=== PATIENT | female | born 1980 | race African-American/Black ===

== ENCOUNTER 2016-05-21 11:59 | Emergency (ER) | payer MEDICAID ==
--- NOTE | 2016-05-21 12:09 | ER Document Report ---
ED Medical Screen (RME) - General Stated Complaint: POSSIBLE SYNCOPE Mode of Arrival: Medic Information source: Emergency Med Personnel Notes: Patient presents to the emergency department via EMS with complaints of syncope this am at school. Reports hx of seizure, takes topamax but not consistently. JOHNSON since last night. No urinary incontinence. No vomiting. I have greeted and performed a rapid initial assessment of this patient. A comprehensive ED assessment and evaluation of the patient, analysis of test results and completion of the medical decision making process will be conducted by additional ED providers. - HPI Onset: Just prior to arrival Physical Exam - Vital signs Vitals: Temp Pulse Resp BP Pulse Ox 97.9 F 74 16 118/76 97 05/21/16 12:04 05/21/16 12:04 05/21/16 12:04 05/21/16 12:04 05/21/16 12:04 Course - Vital Signs Vital signs: Temp Pulse Resp BP Pulse Ox 97.9 F 74 16 118/76 97 05/21/16 12:04 05/21/16 12:04 05/21/16 12:04 05/21/16 12:04 05/21/16 12:04
[2016-05-21 12:48] LABS: ABSOLUTE MONOCYTES (AUTO) 0.3 10^3/uL (0.1-1.4); ABSOLUTE NEUT (AUTO) 3.2 10^3/uL (1.7-8.2); BASOPHILS % (AUTO) 0.6 % (0-2); EOSINOPHILS % (AUTO) 0.5 % (0-6); HEMATOCRIT 39.1 % (36.0-47.0); HEMOGLOBIN 11.9 g/dL (12.0-15.5); HGB HCT DIFFERENCE -3.4; MEAN CORPUSCULAR HEMOGLOBIN 25.4 pg (27.0-33.4); MEAN CORPUSCULAR HGB CONC 30.5 g/dL (32.0-36.0); MEAN CORPUSCULAR VOLUME 83 fl (80-97); RED BLOOD COUNT 4.71 10^6/uL (3.72-5.28); SEGMENTED NEUTROPHILS % (AUTO) 56.9 % (42-78); WHITE BLOOD COUNT 5.6 10^3/uL (4.0-10.5)
--- NOTE | 2016-05-21 12:56 | EKG REPORT ---
SEVERITY:- BORDERLINE ECG - SINUS RHYTHM BORDERLINE T ABNORMALITIES, ANT-LAT LEADS : Confirmed by: Dia Michel MD 21-May-2016 12:54:59
[2016-05-21 13:07] LABS: ALANINE AMINOTRANSFERASE 27 U/L (9-52); ALBUMIN 4.7 g/dL (3.5-5.0); ALKALINE PHOSPHATASE 70 U/L (38-126); ANION GAP 15 (5-19); ASPARTATE AMINO TRANSFERASE 25 U/L (14-36); BILIRUBIN,TOTAL 0.6 mg/dL (0.2-1.3); BLOOD UREA NITROGEN 9 mg/dL (7-20); CALCIUM 10.4 mg/dL (8.4-10.2); CARBON DIOXIDE 26 mmol/L (22-30); CHLORIDE 102 mmol/L (98-107); CREATININE RESULT 1.01 mg/dL (0.52-1.25); GLUCOSE 85 mg/dL (75-110); POTASSIUM 4.2 mmol/L (3.6-5.0); SODIUM 142.7 mmol/L (137-145); TOTAL PROTEIN 8.5 g/dL (6.3-8.2)
[2016-05-21 13:12] LABS: APPEARANCE,URINE CLEAR; BILIRUBIN,URINE NEGATIVE (NEGATIVE); GLUCOSE, URINE NEGATIVE (NEGATIVE); KETONES,URINE NEGATIVE (NEGATIVE); LEUKOCYTE ESTERASE,URINE SMALL (NEGATIVE); NITRITE,URINE NEGATIVE (NEGATIVE); PROTEIN,URINE NEGATIVE (NEGATIVE); UROBILINOGEN,URINE NEGATIVE mg/dL (<2.0)
[2016-05-21] MEDS ORDERED: PROCHLORPERAZINE EDISYLATE INJ 10 MG/2 ML VIAL IV ONE (13:55)
[2016-05-21] MEDS ORDERED: DIPHENHYDRAMINE HCL 50 MG/ML VIAL IV ONE (13:55)
[2016-05-21] MEDS ORDERED: KETOROLAC TROMETHAMINE INJ/PF 30 MG/1 ML SDV IV ONE (13:56)
[2016-05-21] MEDS ORDERED: NORMAL SALINE 1000 ML 1,000 ML IV ONE (13:57)
--- NOTE | 2016-05-21 14:08 | ER Document Report ---
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 When she woke up someone had caught her she did not injure herself she states that she has a history of psychogenic nonepileptic seizures diagnosed in [place]. She states she is numb from the waist down and won't be able to get into the bed without help. She has a history of anemia and kidney stones. While she was in the waiting room at 1:13 this afternoon shift her significant other said that she started staring into space and her head fell forward which they described as a seizure. She takes Topamax 50 mg twice a day, Zoloft 50 mg, ibuprofen 600 mg, and Neurontin which she left at home. After history and physical exam I asked her to move both of her legs and she was able to bend her knee is slightly she then stuck her tongue out and stared, then had rhythmic bilateral extended arms, bilateral extended legs, V ups positioning very violently banging arms and legs on the mattress, breathing maintained, then sat up and started coughing with assistance of the sig other. She then tells me she remembers what her body was doing at the time and says for me to google it, it part of the "PNES" syndrome. No post ictal behavior. then started to look at her cell phone c/o that she needs IV, food, warm blanket, sleep, pain medicine ( asked for it several times) TRAVEL OUTSIDE OF THE [place] IN LAST 30 DAYS: No - Related Data Allergies/Adverse Reactions: Iodine and Iodide Containing Produc Allergy (Verified 05/21/16 12:29) Past Medical History - General Information source: Patient, Emergency Med Personnel - Social History Smoking Status: Former Smoker Chew tobacco use (# tins/day): No Frequency of alcohol use: None Drug Abuse: None Lives with: Spouse/Significant other Family History: Reviewed & Not Pertinent Patient has suicidal ideation: No Patient has homicidal ideation: No Renal/ Medical History: Denies: Hx Peritoneal Dialysis Psychiatric Medical History: Reports: Hx Post Traumatic Stress Disorder, Other - psychogenic non epileptic seizure Surgical Hx: Negative Review of Systems - Review of Systems Constitutional: No symptoms reported EENT: No symptoms reported Cardiovascular: No symptoms reported Respiratory: No symptoms reported Gastrointestinal: No symptoms reported Genitourinary: No symptoms reported Female Genitourinary: No symptoms reported Musculoskeletal: No symptoms reported Skin: No symptoms reported Hematologic/Lymphatic: No symptoms reported Neurological/Psychological: See HPI Physical Exam - Vital signs Vitals: Temp Pulse Resp BP Pulse Ox 97.9 F 74 16 118/76 97 05/21/16 12:04 05/21/16 12:04 05/21/16 12:04 05/21/16 12:04 05/21/16 12:04 Interpretation: Normal - General General appearance: Appears well, Alert In distress: None - HEENT Head: Normocephalic, Atraumatic Eyes: Normal Conjunctiva: Normal Pupils: PERRL Nerve palsy: No Pharynx: Normal Neck: Supple. No: Lymphadenopathy - Respiratory Respiratory status: No respiratory distress Chest status: Nontender Breath sounds: Normal Chest palpation: Normal - Cardiovascular Rhythm: Regular Heart sounds: Normal auscultation Murmur: No - Abdominal Inspection: Normal Distension: No distension Bowel sounds: Normal Tenderness: Nontender. No: Tender Organomegaly: No organomegaly - Back Back: Normal, Nontender. No: CVA tenderness - Extremities General upper extremity: Normal inspection, Nontender, Normal color, Normal ROM , Normal temperature General lower extremity: Normal inspection, Nontender, Normal color, Normal ROM , Normal temperature, Normal weight bearing. No: Clare's sign - Neurological Neuro grossly intact: Yes Cognition: Normal Orientation: AAOx4 [place] Coma Scale Eye Opening: Spontaneous [place] Coma Scale Verbal: Oriented Abdirashid Coma Scale Motor: Obeys Commands Abdirashid Coma Scale Total: 15 Speech: Normal Motor strength normal: LUE, RUE, LLE, RLE Sensory: Normal - Psychological Associated symptoms: Irritable, Tearful - Skin Skin Temperature: Warm Skin Moisture: Dry Skin Color: Normal Course - Re-evaluation Re-evalutation: 05/21/16 14:[address] Bryanna Woods the supervisory physician per [facility] Guidelines, he rec. CT jHead, if ok can be dispo home. Will give her local neurologist referral. She has enough medications at home. 05/21/16 16:14 DT is negative, labs are normal. Headache is 3/5. She took a nap. She is calling her significant other to come get her. - Vital Signs Vital signs: Temp Pulse Resp BP Pulse Ox 97.9 F 74 16 118/76 97 05/21/16 12:04 05/21/16 12:04 05/21/16 12:04 05/21/16 12:04 05/21/16 12:04 - Laboratory Result Diagrams: 05/21/16 12:36 05/21/16 12:36 Laboratory results interpreted by me: 05/21/16 05/21/16 05/21/16 12:36 12:36 12:48 Hgb 11.9 L MCH 25.4 L MCHC 30.5 L Calcium 10.4 H Total Protein 8.5 H Ur Leukocyte Esterase SMALL H Discharge - Discharge Clinical Impression: pseudo seizure Headache Qualifiers: Headache type: unspecified Headache chronicity pattern: episodic headache Intractability: not intractable Qualified Code(s): R51 - Headache Faint Qualifiers: Syncope type: unspecified Qualified Code(s): R55 - Syncope and collapse Condition: Good Disposition: HOME, SELF-CARE Instructions: Headache ([facility]), Fainting ([facility]), Neurologist Additional Instructions: see neurologist in [place] Return to the emergency room for any new or worsening symptoms or any concerns Forms: Return to School
[2016-05-21 19:33] VITALS: BP 134/78
== END 2016-05-21 17:35 | disposition home or self-care (01) ==
LOC: ER 11:59
DX: R51 Headache (principal); R56.9 Unspecified convulsions; R55 Syncope and collapse; W19.XXXA Unspecified fall, initial encounter; Z87.891 Personal history of nicotine dependence
CPT/HCPCS: 93005; 99284; 96361; 96374; 96375; 36415; 84703; 85025; 80053; 81001; 70450; 93010; J1200; J1885; J0780; J7030

== ENCOUNTER 2016-10-07 17:10 | Emergency (ER) | payer MEDICARE, MEDICAID ==
[2016-10-07] MEDS ORDERED: DIAZEPAM 2 MG TABLET PO ONE ×2 (18:20→20:09)
--- NOTE | 2016-10-07 18:20 | ER Document Report ---
ED Seizure - General Mode of Arrival: Wheelchair Information source: Patient - HPI Patient complains to provider of: History of seizures - 5 years Episode witnessed (by whom): Yes - son Current seizure medications: Other - Topomax Preceding symptoms/context: Other - see notes above Character of seizure: Complete loss/conscious Associated Symptoms: Other - see notes above <ABDIRIZAK COON - Last Filed: 10/07/16 20:27> <TALIA PAYTON - Last Filed: 10/07/16 21:09> - General Chief Complaint: Probable Seizure Stated Complaint: POSSIBLE SEIZURE Time Seen by Provider: 10/07/16 18:00 Notes: 36-year-old female with history of psychogenic seizures (diagnosed in 2011; medicated with Topamax) and anemia presents to the ED complaining of having a possible seizure earlier this afternoon. Patient reports that she was walking to her apartment when her legs began to feel weak and she had a syncopal episode. When she woke up there were people around her who stated that she had a possible seizure. Patient is complaining of right neck pain that was present before the seizure and was exacerbated after having the seizure. Patient reports that her last seizure was on August 06, 2016. Patient has not missed a dose of Topamax, but states that she is currently on a low-dose. (ABDIRIZAK COON) - Related Data Allergies/Adverse Reactions: Iodine and Iodide Containing Produc Allergy (Verified 10/07/16 17:20) Past Medical History - General Information source: Patient - Social History Smoking Status: Never Smoker Frequency of alcohol use: None Drug Abuse: None Family History: Reviewed & Not Pertinent Patient has suicidal ideation: No Patient has homicidal ideation: No Neurological Medical History: Reports: Hx Seizures - psychogenic non epileptic ( 2011) Renal/ Medical History: Denies: Hx Peritoneal Dialysis Psychiatric Medical History: Reports: Hx Post Traumatic Stress Disorder - Immunizations Hx Diphtheria, Pertussis, Tetanus Vaccination: Yes <ABDIRIZAK COON - Last Filed: 10/07/16 20:27> Physical Exam - General General appearance: Alert In distress: None - HEENT Head: Normocephalic, Atraumatic Eyes: Normal Pupils: PERRL Neck: Other - Right trapezius tenderness to palpation. No: Normal - Respiratory Respiratory status: No respiratory distress Breath sounds: Normal - Cardiovascular Rhythm: Regular Heart sounds: Normal auscultation Murmur: No Friction rub: No Gallop: None auscultated <ABDIRIZAK COON - Last Filed: 10/07/16 20:27> - Abdominal Distension: No distension - Neurological Neuro grossly intact: Yes Cognition: Normal Orientation: AAOx4 Motor strength normal: LUE, RUE, LLE, RLE - Psychological Associated symptoms: Normal affect, Normal mood - Skin Skin Temperature: Warm Skin Moisture: Dry Skin Color: Normal <TALIA PAYTON - Last Filed: 10/07/16 21:09> - Vital signs Vitals: Temp Pulse Resp BP Pulse Ox 98.3 F 82 14 122/80 97 10/07/16 17:18 10/07/16 17:18 10/07/16 17:18 10/07/16 17:18 10/07/16 17:18 - Extremities Notes: Full range of motion bilateral upper extremities without difficulty although she does complain of pain with elevation abduction of her right shoulder. ( TALIA PAYTON) Course - Laboratory Result Diagrams: 10/07/16 18:53 10/07/16 18:53 <ABDIRIZAK COON - Last Filed: 10/07/16 20:27> - Laboratory Result Diagrams: 10/07/16 18:53 10/07/16 18:53 <TALIA PAYTON - Last Filed: 10/07/16 21:09> - Re-evaluation Re-evalutation: 10/07/16 20:11 CBC unremarkable, CMP unremarkable, patient has a known history of seizures, no further workup for this seizure is needed. She seems to have them every 1-3 months. Patient does complain of pain to the right side of her neck however on palpation it is determined to be the trapezius and not to the midline bony spine. No indication for imaging at this time. There is a palpable muscle spasm that reproduces the pain, patient's pain is treated with Valium as a muscle relaxer. She also has Robaxin at home as a muscle relaxer. Patient will be discharged home. (TALIA PAYTON) - Vital Signs Vital signs: Temp Pulse Resp BP Pulse Ox 98.6 F 68 18 137/77 H 100 10/07/16 20:17 10/07/16 20:17 10/07/16 20:17 10/07/16 20:17 10/07/16 20:17 - Laboratory Laboratory results interpreted by me: 10/07/16 10/07/16 18:53 18:53 MCH 26.1 L MCHC 31.5 L Total Protein 8.4 H Discharge <ABDIRIZAK COON - Last Filed: 10/07/16 20:27> <TALIA PAYTON - Last Filed: 10/07/16 21:09> - Discharge Clinical Impression: Seizure, Trapezius muscle spasm Condition: Stable Disposition: HOME, SELF-CARE Additional Instructions: Do not take your hydroxyzine when you get home. Please use your Robaxin as previously prescribed starting tomorrow. Use heat and ice to decrease the pain and spasm in the right trapezius. Scribe Attestation: 10/07/16 21:08 I personally performed the services described in the documentation, reviewed and edited the documentation which was dictated to the scribe in my presence, and it accurately records my words and actions. (TALIA PAYTON) Scribe Documentation - Scribe Written by Katie:: Katie Larson, [id number] acting as scribe for :: Marcio <ABDIRIZAK COON - Last Filed: 10/07/16 20:27>
[2016-10-07 19:08] LABS: ABSOLUTE BASOPHILS # (AUTO) 0.1 10^3/uL (0.0-0.2); ABSOLUTE LYMPHOCYTES (AUTO) 1.9 10^3/uL (0.5-4.7); ABSOLUTE MONOCYTES (AUTO) 0.3 10^3/uL (0.1-1.4); ABSOLUTE NEUT (AUTO) 3.4 10^3/uL (1.7-8.2); EOSINOPHILS % (AUTO) 0.8 % (0-6); HEMATOCRIT 39.6 % (36.0-47.0); HEMOGLOBIN 12.5 g/dL (12.0-15.5); HGB HCT DIFFERENCE -2.1; LYMPHOCYTES % (AUTO) 32.7 % (13-45); MEAN CORPUSCULAR HEMOGLOBIN 26.1 pg (27.0-33.4); MEAN CORPUSCULAR HGB CONC 31.5 g/dL (32.0-36.0); MEAN CORPUSCULAR VOLUME 83 fl (80-97); MONOCYTES % (AUTO) 5.4 % (3-13); RED BLOOD COUNT 4.77 10^6/uL (3.72-5.28); RED CELL DISTRIBUTION WIDTH 13.1 % (11.5-14.0); SEGMENTED NEUTROPHILS % (AUTO) 60.1 % (42-78); WHITE BLOOD COUNT 5.7 10^3/uL (4.0-10.5)
[2016-10-07 19:30] LABS: ALANINE AMINOTRANSFERASE 24 U/L (9-52); ALBUMIN 4.8 g/dL (3.5-5.0); ALKALINE PHOSPHATASE 69 U/L (38-126); ANION GAP 14 (5-19); ASPARTATE AMINO TRANSFERASE 20 U/L (14-36); BILIRUBIN,DIRECT 0.3 mg/dL (0.0-0.4); BILIRUBIN,TOTAL 0.4 mg/dL (0.2-1.3); BLOOD UREA NITROGEN 9 mg/dL (7-20); CALCIUM 9.8 mg/dL (8.4-10.2); CARBON DIOXIDE 25 mmol/L (22-30); CHLORIDE 102 mmol/L (98-107); CREATININE RESULT 0.95 mg/dL (0.52-1.25); GLUCOSE 101 mg/dL (75-110); POTASSIUM 4.2 mmol/L (3.6-5.0); SODIUM 140.5 mmol/L (137-145); TOTAL PROTEIN 8.4 g/dL (6.3-8.2)
[2016-10-07 20:22] VITALS: BP 137/77
== END 2016-10-07 20:30 | disposition home or self-care (01) ==
LOC: ER 17:10
DX: M62.830 Muscle spasm of back (principal); R56.9 Unspecified convulsions; D64.9 Anemia, unspecified; Z79.899 Other long term (current) drug therapy; M54.2 Cervicalgia
CPT/HCPCS: 99284; 36415; 85025; 80053; A9270; J3490

== ENCOUNTER → 2016-11-24 | Outpatient (CLI) | payer MEDICARE, MEDICAID ==
--- NOTE | 2016-11-26 08:48 | EEG PRO FEE REPORT ---
EEG INTERPRETATION PATIENT NAME: ROBE VASQUES ROOM#: ORDER#: [id number] DATE OF STUDY: 11/24/2016 : 1980 REFERRING MD: LEANNA CARABALLO M.D. DIAGNOSIS: Epilepsy MEDICATIONS: REPORT This is a 16 channel EEG recording with a channel of EKG. This is done during wakefulness, hyperventilation, photic stimulation, and early stages of sleep. Moderate artifact seen from muscle movement, electrode popping EKG artifact, and eye movement. The background activity is formally active alpha 9-10 cycles per second, best seen in the posterior electrodes beta 18-22 cycles per second, intermittent, nonlocalized or sustained slower forms also seen. Hyperventilation, photic stimulation were administered did not evoke any abnormal discharges. In the early stages of sleep, more generalized slowing is seen. IMPRESSION This EEG is within normal limits. INTERPRETING PHYSICIAN: FRANCE NICHOLSON M.D. /: MTEFFT TT: [id number] ID: [id number] /: [id number] TD: [id number] JOB: [id number] cc:Greta RODRIGUEZ M.D. >
== END ==
LOC: NEURO 13:12
PROVIDERS: ATTEND Pediatrics
DX: G40.909 Epilepsy, unspecified, not intractable, without status epilepticus (principal)
CPT/HCPCS: 95819

== ENCOUNTER 2017-01-24 15:58 | Emergency (ER) | payer MEDICARE, MEDICAID ==
[2017-01-24 16:23] VITALS: BP 126/71
--- NOTE | 2017-01-24 17:06 | ER Document Report ---
HPI - HPI Patient complains to provider of: right upper back/arm pain Onset: This morning Onset/Duration: Gradual Quality of pain: Sharp Pain Level: 4 Context: Patient states she woke up today with right upper back pain that radiates into her right upper extremity. Patient states the pain to her right upper arm comes and goes and is presently resolved. Patient denies any injury. Patient does state she has had a history of chronic back pain in the past. Patient denies any fever or recent illness. Associated Symptoms: Other - Right upper back, right upper extremity pain Exacerbated by: Movement Relieved by: Denies Similar symptoms previously: Yes Recently seen / treated by doctor: No - ROS ROS below otherwise negative: Yes Systems Reviewed and Negative: Yes All other systems reviewed and negative - CONSTITUTIONAL Constitutional: DENIES: Fever, Chills - EENT EENT: DENIES: Sore Throat - NEURO Neurology: DENIES: Headache, Weakness - CARDIOVASCULAR Cardiovascular: DENIES: Chest pain - GASTROINTESTINAL Gastrointestinal: DENIES: Patient vomiting - MUSCULOSKELETAL Musculoskeletal: REPORTS: Extremity pain, Back Pain. DENIES: Neck Pain - DERM Skin Color: Normal Skin Problems: None Past Medical History - General Information source: Patient - Social History Smoking Status: Current Every Day Smoker Chew tobacco use (# tins/day): No Frequency of alcohol use: None Drug Abuse: None Lives with: Family Family History: Reviewed & Not Pertinent Patient has suicidal ideation: No Patient has homicidal ideation: No Neurological Medical History: Reports: Hx Seizures - psychogenic non epileptic Renal/ Medical History: Denies: Hx Peritoneal Dialysis Musculoskeltal Medical History: Reports Other - Chronic back pain Psychiatric Medical History: Reports: Hx Anxiety, Hx Post Traumatic Stress Disorder Past Surgical History: Reports: Other - rhizotomy - Immunizations Hx Diphtheria, Pertussis, Tetanus Vaccination: Yes Vertical Provider Document - CONSTITUTIONAL Agree With Documented VS: Yes Exam Limitations: No Limitations General Appearance: WD/WN, No Apparent Distress - INFECTION CONTROL TRAVEL OUTSIDE OF THE [place] IN LAST 30 DAYS: No - HEENT HEENT: Atraumatic, Normal ENT Exam, Normocephalic - NECK Neck: Normal Inspection, Supple, Other. negative: Lymphadenopathy-Left, Lymphadenopathy-Right - RESPIRATORY Respiratory: Breath Sounds Normal, No Respiratory Distress O2 Sat by Pulse Oximetry: 100 - CARDIOVASCULAR Cardiovascular: Regular Rate, Regular Rhythm, No Murmur Pulses: Normal: Radial - BACK Back: Abnormal Inspection - Right trapezius muscle tenderness with spasm, tenderness increases with movement of right upper extremity - MUSCULOSKELETAL/EXTREMETIES Musculoskeletal/Extremeties: JULIETTE, FROM Notes: Normal strength and muscle tone to bilateral upper extremities. Equal bleach maker bilaterally - NEURO Level of Consciousness: Awake, Alert, Appropriate Motor/Sensory: No Motor Deficit, No Sensory Deficit - DERM Integumentary: Warm, Dry, No Rash Course - Vital Signs Vital signs: Temp Pulse Resp BP Pulse Ox 98.9 F 77 18 126/71 H 100 01/24/17 16:18 01/24/17 16:18 01/24/17 16:18 01/24/17 16:18 01/24/17 16:18 Discharge - Discharge Clinical Impression: Trapezius muscle spasm, Radicular pain in right arm Condition: Stable Disposition: HOME, SELF-CARE Instructions: Muscle Relaxers ([facility]), Oral Narcotic Medication ([facility]), Radiculopathy ([facility]), Warm Packs ([facility]) Additional Instructions: Return immediately for any new or worsening symptoms Followup with your primary care provider, call tomorrow to make a followup appointment Take your muscle relaxant that you have at home as prescribed Prescriptions: Naproxen [Naprosyn 250 Nmg Tablet] 1 tab PO BID #14 tablet Oxycodone HCl/Acetaminophen [Percocet 5-325 mg Tablet] 1 tab PO ASDIR PRN #12 tablet PRN Reason: Referrals: [facility] [Provider Group] - Follow up tomorrow
[2017-01-24] MEDS ORDERED: LIDOCAINE 5% (700 MG) TRANSDERMAL ADH..PATCH TP ONE (17:15)
[2017-01-24] MEDS ORDERED: OXYCODONE-ACETAMINOPHEN 5-325 MG TABLET PO ONE (17:15)
[2017-01-24] MEDS ORDERED: KETOROLAC TROMETHAMINE 60 MG/2 ML SDV IM ONE (17:15)
== END 2017-01-24 17:29 | disposition home or self-care (01) ==
LOC: ER 15:58
DX: M62.830 Muscle spasm of back (principal); M54.6 Pain in thoracic spine; M79.601 Pain in right arm; F17.200 Nicotine dependence, unspecified, uncomplicated
CPT/HCPCS: 99283; 96372; J1885; A9270

== ENCOUNTER 2017-06-16 13:03 | Emergency (ER) | payer MEDICARE, MEDICAID ==
--- NOTE | 2017-06-16 15:48 | ER Document Report ---
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 She has been seen by neurologist previously who diagnosed her. She says that she has had a couple of seizures since March. Last night she had a couple more seizures, 1 of them lasting 30 minutes!. Today, she is feeling weak and dizzy and having a headache and feeling numb and tinglng. She went to a local urgent care who contacted her local neurologist, Dr. Chiang, who advised that the patient come to his office. However, while arrangements were being made to discharge her to follow-up at his office, the patient had another seizure in the urgent care and they called EMS to transport the patient here. Patient says she did not lose control of her bladder or bowels. Did not bite her tongue or cheek. Patient is complaining of weakness, headache, numbness, and generalized aches. She is currently not taking any medications for her seizures. Patient has not had any nausea or vomiting. No fevers. No change in vision. She had an appointment and saw Dr. Chiang on June 08, and he wants her scheduled for an EEG and plans to see her back in the office on July 06. Patient says that his office has not scheduled her EEG. Dr. Chiang says that at one time she was on Topamax and gabapentin, but she stopped them on her own. He has not prescribed anything new because he wants to see an EEG without medications on board. He recently started seeing this patient. Patient has a history of PTSD which she says is the underlying cause for her seizures. She also has a history of depression and is on Zoloft. Currently is on metronidazole for "an infection". COUNTRY TRAVELED TO/FROM: [place] - Related Data Allergies/Adverse Reactions: Iodine and Iodide Containing Produc Allergy (Verified 06/16/17 13:11) Past Medical History - Social History Smoking Status: Unknown if Ever Smoked Family History: Reviewed & Not Pertinent Patient has suicidal ideation: No Patient has homicidal ideation: No Neurological Medical History: Reports: Hx Seizures - psychogenic non epileptic Psychiatric Medical History: Reports: Hx Anxiety, Hx Depression, Hx Post Traumatic Stress Disorder Past Surgical History: Reports: Other - rhizotomy - Immunizations Hx Diphtheria, Pertussis, Tetanus Vaccination: Yes Review of Systems - Review of Systems Notes: REVIEW OF SYSTEMS: CONSTITUTIONAL : Denies fever. EENT: Denies eye, ear, nose or mouth or throat pain or other symptoms. CARDIOVASCULAR: Denies chest pain. RESPIRATORY: Denies cough, chest congestion, or shortness of breath. GASTROINTESTINAL: Denies abdominal pain or nausea, vomiting, or diarrhea. GENITOURINARY: Denies difficulty or painful urinating, urinary frequency, blood in urine. MUSCULOSKELETAL: Denies back or neck pain. Denies joint pain or swelling. SKIN: Denies rash or skin lesions. NEUROLOGICAL: Denies LOC or altered mental status. Has a global headache. Denies sensory loss or motor deficits. ALL OTHER SYSTEMS REVIEWED AND NEGATIVE. Physical Exam - Vital signs Vitals: Temp Pulse Resp BP Pulse Ox 98.3 F 68 16 117/66 100 06/16/17 13:16 06/16/17 13:16 06/16/17 13:16 06/16/17 13:16 06/16/17 13:16 Interpretation: Normal. No: Febrile - Notes Notes: PHYSICAL EXAMINATION: GENERAL: Well-appearing, in no acute distress. All vital signs are normal. HEAD: Atraumatic, normocephalic. EYES: Pupils equal round and reactive to light, extraocular movements intact. ENT: oropharynx clear without exudates. Moist mucous membranes. NECK: Normal range of motion, supple. LUNGS: Breath sounds clear and equal bilaterally. HEART: Regular rate and rhythm without murmurs. ABDOMEN: Soft, nontender. No guarding or rebound. No masses. BACK: No tenderness throughout entire back. EXTREMITIES: Normal range of motion without pain. NEUROLOGICAL: Normal speech. Normal sensory, motor, and reflex exams. Awake, alert, and oriented x3. PSYCH: Normal mood, normal affect. SKIN: Warm, dry, no rashes. Course - Re-evaluation Re-evalutation: 06/16/17 16:51 I was able to contact Dr. Chiang and we discussed the case. He did not feel that she should be started on any seizure medicines unless she has repeated, he wants to get her EEG done first. I advised the patient of this plan and she wanted to know what I was going to give her for her headache and body aches. I recommended that she take Tylenol. She says that that was not acceptable because it was [id number]. I then told her to try ibuprofen or Motrin and she said, likewise, that is [id number] and not strong enough. I told her that I did not feel that her evaluation indicated the need for anything stronger and certainly did not indicate the need for narcotics or controlled substances. I told her I would not provide her with any stronger medication. I went and wrote the patient's discharge instructions and the son wanted to know what the patient's lab work had shown. I did not order any lab work as I did not feel any was indicated with this presentation of a totally normal exam, normal vital signs, and a long-standing history of psychogenic seizures.. I told the patient that I did not think she needed to have lab work done and she and her son both became angered that I did not plan on doing any further testing. Patient wanted to know if I knew what PNE is and I told him I did know very well what it is. Patient wanted to know if I felt it was real? I did not answer that question. I basically told the patient I had discharge instructions for her and that I was finished with her care. - Vital Signs Vital signs: Temp Pulse Resp BP Pulse Ox 98.4 F 93 16 159/80 H 99 06/16/17 16:48 06/16/17 16:48 06/16/17 16:48 06/16/17 16:48 06/16/17 16:48 Discharge - Discharge Clinical Impression: Psychogenic nonepileptic seizure Condition: Stable Disposition: HOME, SELF-CARE Additional Instructions: Seizure You have had a seizure. Seizure disorders (epilepsy) of one sort or another affect about one out of 50 people. The seizure occurs because of abnormal electrical activity in the brain. Seizures may be due to drugs and alcohol, strokes, brain injury, or infection. In the most common form of epilepsy, no cause can be found. You will require further evaluation to determine the cause of your seizure, and to determine whether anti-seizure medication is required. This follow-up testing is important, so please call us if you encounter problems with scheduling of tests or appointments. YOU SHOULD NOT DRIVE until released to do so by your physician. The law requires that seizures be reported to the bus driver/monitor's license bureau--a seizure while driving could be catastrophic. Call the doctor if seizures recur, or if you develop new symptoms such as fever, severe headache, stiff neck, confusion or increasing sleepiness, weakness or numbness, or visual problems. USE OF ACETAMINOPHEN (Tylenol): Acetaminophen may be taken for pain relief or fever control. It's much safer than aspirin, offering a wider range of "safe" dosages. It is safe during . Some brand names are Tylenol, Panadol, Datril, Anacin 3, Tempra, and Liquiprin. Acetaminophen can be repeated every four hours. The following are maximum recommended dosages: WEIGHT Dose Drops Elixir Chewable( 80mg) (LBS.) drprs=droppers tsp=teaspoon >89 pounds or adults 650 mg to 900 mg Acetaminophen can be repeated every four hours. Maximum dose not to exceed 4000 mg a day. These maximum recommended dosages are slightly higher than the dosages written on the product container, but these dosages are very safe and below the toxic dosage for acetaminophen. Ibuprofen Ibuprofen is an excellent, safe drug for pain control. In addition, it has potent antiinflammatory effects which are beneficial, especially in the treatment of injuries, arthritis, or tendonitis. It's best to take ibuprofen with food. Persons with ulcer disease or allergy to aspirin should notify their physician of this before taking ibuprofen. Take the medication exactly as prescribed. Don't take additional doses unless instructed to do so by your doctor. If you develop wheezing, shortness of breath, hives, faintness, stomach pain, vomiting, or dark black stools, return for re-evaluation at once. FOLLOW-UP CARE: If you have been referred to a physician for follow-up care, call the physician s office for an appointment as you were instructed or within the next two days. If you experience worsening or a significant change in your symptoms, notify the physician immediately or return to the Emergency Department at any time for re-evaluation. You need to get your EEG done as discussed with Dr. Chiang and follow-up with him for treating your seizure disorder. Prescriptions: Ibuprofen 800 mg PO TIDP PRN #10 tablet PRN Reason:
[2017-06-16] MEDS ORDERED: IBUPROFEN 800 MG TABLET PO ONE (17:04)
[2017-06-16 17:33] VITALS: BP 159/80
== END 2017-06-16 17:19 | disposition home or self-care (01) ==
LOC: ER 13:03
DX: F44.5 Conversion disorder with seizures or convulsions (principal); R53.1 Weakness; R42 Dizziness and giddiness; R51 Headache; R20.0 Anesthesia of skin; R20.2 Paresthesia of skin; B99.9 Unspecified infectious disease; F32.9 Major depressive disorder, single episode, unspecified; Z79.899 Other long term (current) drug therapy
CPT/HCPCS: 99284; A9270

== ENCOUNTER → 2017-06-22 | Outpatient (CLI) | payer MEDICARE, MEDICAID ==
--- NOTE | 2017-06-23 08:46 | EEG PRO FEE REPORT ---
EEG INTERPRETATION PATIENT NAME: ROBE VASQUES ROOM#: ORDER#: [id number] DATE OF STUDY: 06/22/2017 : 1980 REFERRING MD: LEANNA CARABALLO M.D. DIAGNOSIS: Seizures REPORT The background activity consist of 8-9 Hz alpha with some superimposed motion artifact at times. Video was reviewed and no seizure like activity was noted no paroxysmal or epileptiform activity is noted during the tracing which remains bilaterally bisynchronous. Hyperventilation elicits some build up but returns to normal with one and half minutes; no focal slowing or amplitude asymmetry are noted. FINAL IMPRESSION: Normal EEG INTERPRETING PHYSICIAN: ISRAEL MARTINS M.D. /: MTEFFT TT: [id number] ID: [id number] /: [id number] TD: [id number] JOB: [id number] cc:Greta GARCIA M.D. >
== END ==
LOC: NEURO 08:47
PROVIDERS: ATTEND Pediatrics
DX: G40.909 Epilepsy, unspecified, not intractable, without status epilepticus (principal); Z91.19 Patient's noncompliance with other medical treatment and regimen
CPT/HCPCS: 95819

== ENCOUNTER 2017-07-29 23:10 | Emergency (ER) | payer MEDICARE, MEDICAID ==
--- NOTE | 2017-07-30 02:33 | ER Document Report ---
ED GI/ - General Chief Complaint: Rectal Bleeding Stated Complaint: RECTAL BLEEDING Time Seen by Provider: 07/30/17 02:21 Notes: Patient is a 36-year-old female comes emergency department for chief complaint of a swollen tender area protruding from her rectum, she states the area is intermittently bleeding, occasionally heavier bleeding with clots. She has had 2 bowel movements today, one she noticed blood in. She has a little bit of intermittent lower abdominal cramping as well. She denies nausea or vomiting, fever or chills. She denies history of hemorrhoids. She has a Mirena. TRAVEL OUTSIDE OF THE [place] IN LAST 30 DAYS: No COUNTRY TRAVELED TO/FROM: [place] - Related Data Allergies/Adverse Reactions: Iodine and Iodide Containing Produc Allergy (Verified 06/16/17 13:11) Past Medical History - General Information source: Patient - Social History Smoking Status: Never Smoker Frequency of alcohol use: None Drug Abuse: None Lives with: Family Family History: Reviewed & Not Pertinent Neurological Medical History: Reports: Hx Seizures - psychogenic non epileptic Renal/ Medical History: Denies: Hx Peritoneal Dialysis Psychiatric Medical History: Reports: Hx Anxiety, Hx Depression, Hx Post Traumatic Stress Disorder Past Surgical History: Reports: Other - rhizotomy - Immunizations Hx Diphtheria, Pertussis, Tetanus Vaccination: Yes Review of Systems - Review of Systems Constitutional: No symptoms reported EENT: No symptoms reported Cardiovascular: No symptoms reported Respiratory: No symptoms reported Gastrointestinal: See HPI Genitourinary: No symptoms reported Female Genitourinary: No symptoms reported Musculoskeletal: No symptoms reported Skin: No symptoms reported Hematologic/Lymphatic: No symptoms reported Neurological/Psychological: No symptoms reported Physical Exam - Vital signs Vitals: Temp Pulse Resp BP Pulse Ox 98.6 F 76 20 124/91 H 98 07/29/17 23:14 07/29/17 23:14 07/29/17 23:14 07/29/17 23:14 07/29/17 23:14 Interpretation: Normal - General General appearance: Appears well In distress: None - HEENT Head: Normocephalic, Atraumatic Eyes: Normal Pupils: PERRL - Respiratory Respiratory status: No respiratory distress Chest status: Nontender Breath sounds: Normal Chest palpation: Normal - Cardiovascular Rhythm: Regular Heart sounds: Normal auscultation Murmur: No - Abdominal Inspection: Normal Distension: No distension Bowel sounds: Normal Tenderness: Tender - Tender over suprapubic area mildly, no guarding, unremarkable abdomen otherwise. No: Guarding Organomegaly: No organomegaly - Rectal Hemorrhoids: Other - Prolapsed internal hemorrhoids with bleeding; Carlie PCT present at bedside - Back Back: Normal, Nontender. No: Tender - Extremities General upper extremity: Normal inspection, Nontender, Normal color, Normal ROM , Normal temperature General lower extremity: Normal inspection, Nontender, Normal color, Normal ROM , Normal temperature, Normal weight bearing. No: Clare's sign - Neurological Neuro grossly intact: Yes Cognition: Normal Orientation: AAOx4 [place] Coma Scale Eye Opening: Spontaneous Abidrashid Coma Scale Verbal: Oriented Abdirashid Coma Scale Motor: Obeys Commands Abdirashid Coma Scale Total: 15 Speech: Normal Motor strength normal: LUE, RUE, LLE, RLE Sensory: Normal - Psychological Associated symptoms: Normal affect, Normal mood - Skin Skin Temperature: Warm Skin Moisture: Dry Skin Color: Normal Course - Re-evaluation Re-evalutation: Patient with what appears to be somewhat heavily bleeding prolapsed internal hemorrhoids. These were reduced easily on exam. She has small resolving external hemorrhoids otherwise. No thrombosed external hemorrhoids, no evidence of abscess. She has mild suprapubic tenderness on exam, evidence of urinary tract infection. Declined additional workup including pelvic exam. Very low suspicion of acute abdomen based on her abdominal exam, vital signs unremarkable. Discussed follow-up, recommendations, return precautions, patient states understanding and agreement. - Vital Signs Vital signs: Temp Pulse Resp BP Pulse Ox 97.9 F 79 16 138/94 H 98 07/30/17 04:01 07/30/17 04:01 07/30/17 04:01 07/30/17 04:01 07/30/17 04:01 - Laboratory Laboratory results interpreted by me: 07/30/17 02:40 Urine Blood LARGE H Ur Leukocyte Esterase TRACE H Discharge - Discharge Clinical Impression: Rectal bleeding, Lower abdominal pain Condition: Stable Disposition: HOME, SELF-CARE Additional Instructions: Your examination was consistent with prolapsed internal hemorrhoids. This was reduced, recommendation is to take stool softeners as prescribed, avoid any straining the toilet, increase fiber in diet, drink plenty of fluids. Follow- up with surgical clinic referral for additional evaluation and management. Your urine and symptoms also suggest a urinary tract infection, take antibiotics as prescribed. Return for any concerning symptoms including heavy bleeding, severe pain, or any other concerning or worsening symptoms. Prescriptions: Cephalexin Monohydrate [Keflex 500 mg Capsule] 500 mg PO BID #10 capsule Docusate Sodium [Colace 100 mg Capsule] 100 mg PO ASDIR PRN #30 capsule PRN Reason: Referrals: [facility] [Provider Group] - Follow up as needed
[2017-07-30 03:10] LABS: APPEARANCE,URINE SLIGHTLY-CLOUDY; BILIRUBIN,URINE NEGATIVE (NEGATIVE); CALCIUM OXALATE CRYSTALS,URINE FEW /HPF; COLOR,URINE YELLOW; GLUCOSE, URINE NEGATIVE (NEGATIVE); KETONES,URINE NEGATIVE (NEGATIVE); LEUKOCYTE ESTERASE,URINE TRACE (NEGATIVE); NITRITE,URINE NEGATIVE (NEGATIVE); PROTEIN,URINE NEGATIVE (NEGATIVE); URINE SPECIFIC GRAVITY 1.024; UROBILINOGEN,URINE NEGATIVE mg/dL (<2.0)
[2017-07-30 04:02] VITALS: BP 138/94
== END 2017-07-30 04:09 | disposition home or self-care (01) ==
LOC: ER 23:10
DX: K62.5 Hemorrhage of anus and rectum (principal); K64.8 Other hemorrhoids; N39.0 Urinary tract infection, site not specified; R10.30 Lower abdominal pain, unspecified; Z97.5 Presence of (intrauterine) contraceptive device
CPT/HCPCS: 81001; 81025; 99283

== ENCOUNTER 2017-08-26 10:59 | Day surgery (SDC) | payer MEDICARE, MEDICAID ==
[2017-08-20 10:46] LABS: HEMOGLOBIN 11.9 g/dL (12.0-15.5); MEAN CORPUSCULAR HEMOGLOBIN 26.2 pg (27.0-33.4); MEAN CORPUSCULAR HGB CONC 32.3 g/dL (32.0-36.0); MEAN CORPUSCULAR VOLUME 81 fl (80-97); PLATELET COUNT 232 10^3/uL (150-450); RED BLOOD COUNT 4.56 10^6/uL (3.72-5.28); RED CELL DISTRIBUTION WIDTH 13.3 % (11.5-14.0); WHITE BLOOD COUNT 5.5 10^3/uL (4.0-10.5)
--- NOTE | 2017-08-20 12:56 | EKG REPORT ---
SEVERITY:- NORMAL ECG - SINUS RHYTHM : Confirmed by: Afshin Ortiz MD 20-Aug-2017 12:55:39
[~2017-08-26 10:59] MED LIST: ACETAMINOPHEN 325 MG TABLET PO PRN; LACTATED RINGERS 1000 ML IV PRN; LIDOCAINE 0.5% INJ-PF (5 MG/ML) 50 ML SDV SUBCUT PRN
[2017-08-26] MEDS ORDERED: PROPOFOL INJ 200 MG/20 ML VIAL IV ONE (14:07)
[2017-08-26] MEDS ORDERED: LIDOCAINE 2% INJ-PF (20 MG/ML) 10 ML AMPUL ONE (14:07)
[2017-08-26] MEDS ORDERED: ONDANSETRON HCL INJ/PF 4 MG/2 ML SDV ONE (14:08)
[2017-08-26] MEDS ORDERED: MIDAZOLAM 2 MG/2 ML INJ ONE (14:25)
[2017-08-26] MEDS ORDERED: FENTANYL CITRATE INJ/PF 100 MCG/2 ML AMPUL ONE (14:25)
[2017-08-26] MEDS ORDERED: OXYCODONE-ACETAMINOPHEN 5-325 MG TABLET PO PRN ×2 (14:41)
[2017-08-26] MEDS ORDERED: DIPHENHYDRAMINE HCL 50 MG/ML VIAL IV PRN (14:41)
[2017-08-26] MEDS ORDERED: MEPERIDINE HCL/PF INJ 25 MG/1 ML DISP.SYRIN IV PRN (14:41)
[2017-08-26] MEDS ORDERED: FENTANYL CITRATE INJ/PF 100 MCG/2 ML AMPUL IV PRN ×3 (14:41)
[2017-08-26] MEDS ORDERED: MORPHINE SULFATE 10 MG/ML INJ IV PRN (14:41)
[2017-08-26] MEDS ORDERED: PROMETHAZINE HCL INJ 25 MG/1 ML VIAL IV PRN ×2 (14:41)
--- NOTE | 2017-08-26 15:10 | Operative Report ---
Nonrecallable Operative Report DATE OF SURGERY: 08/26/17 PREOPERATIVE DIAGNOSIS: Rectal bleeding, internal hemorrhoids POSTOPERATIVE DIAGNOSIS: Same as above OPERATION: 1. Colonoscopy to cecum. 2. Rubber band ligation of internal hemorrhoids 3. SURGEON: TORRIE SEPULVEDA ANESTHESIA: LMAC TISSUE REMOVED OR ALTERED: None COMPLICATIONS: None apparent ESTIMATED BLOOD LOSS: Minimal PROCEDURE: Drains/implants: None. After informed consent was obtained, the patient was brought to the operating room and laid in the left lateral decubitus position. The endoscope was passed up the rectum, sigmoid colon, descending colon, across the transverse colon, down the ascending colon, and into the cecum. The ileocecal valve and appendiceal orifice were identified. Scope was then withdrawn circumferentially noting the mucosa. The prep was excellent. The scope was pulled back past the ascending colon, transverse colon, down the descending colon, sigmoid colon, and into the rectum. In the rectum, a retroflexion maneuver was performed. There were small, mildly pedunculated internal hemorrhoids identified. The scope was straightened, air was suctioned from the rectum, the scope was removed, and this portion of the procedure was concluded. Please note there were no masses, lesions, polyps, diverticula, bleeding, ulcerations, or other abnormalities found throughout the colon (aside from the aforementioned internal hemorrhoids). Next, attention was turned to ligating the internal hemorrhoids. The rubber band device was used to ligate hemorrhoids in the right posterior, right anterior, and left lateral columns. 3 rubber bands were used in total. Once this was completed, the procedure was concluded. All sponge, instrument, and needle counts were correct 2. Condition: Stable.
[2017-08-26 17:22] VITALS: BP 127/62
== END 2017-08-26 17:15 | disposition home or self-care (01) ==
LOC: OROUT 10:59
PROVIDERS: ATTEND Surgery
DX: K62.5 Hemorrhage of anus and rectum (principal); K64.8 Other hemorrhoids; G40.909 Epilepsy, unspecified, not intractable, without status epilepticus; F41.9 Anxiety disorder, unspecified; Z79.891 Long term (current) use of opiate analgesic; Z79.899 Other long term (current) drug therapy; Z91.041 Radiographic dye allergy status
CPT/HCPCS: 45378; 46221; 93005; 36415; 85027; 81025; 93010; J2250; J3010; J2405; J2704; J3490; 811

== ENCOUNTER 2017-10-17 13:19 | Emergency (ER) | payer MEDICARE, MEDICAID ==
--- NOTE | 2017-10-17 13:37 | ER Document Report ---
ED Seizure - General Stated Complaint: POSSIBLE SEIZURE Time Seen by Provider: 10/17/17 13:27 Information source: Patient, Emergency Med Personnel Notes: Patient is a 37-year-old female with a documented history of psychogenic seizures with a normal EEG on June 22 by the neurologist who presents today after a supposedly witnessed tonic-clonic seizure while at [employer] by a friend. Patient states when she awoke from the seizure she has some weakness to the right arm. EMS states she also had some right facial droop. Patient denies any headache, neck pain, or chest pain. She denies any weakness or numbness prior to the incident. Patient states she has had these episodes previously before. Patient states that after her head trauma in 2011 she had seizures almost 5 times daily. She moved here from [place] and was seen by the neurology team. She states that they took her off the [employer]. She had a normal EEG in May this past year. COUNTRY TRAVELED TO/FROM: [place] - [facility] Quality of pain: No pain Severity: Mild Pain Level: Denies Continued on arrival to ED: Yes Can details of seizure be obtained/verified: Yes Episode witnessed (by whom): Yes - Friend Current seizure medications: Other - None Character of seizure: Complete loss/conscious, Generalized shaking. No: Incontinent bladder Injuries: None - Related Data Allergies/Adverse Reactions: Iodinated Contrast- Oral and IV Dye Allergy (Severe, Verified 10/17/17 13:37) Hives Iodine and Iodide Containing Produc Allergy (Verified 10/17/17 13:37) Past Medical History - General Information source: Patient - Social History Smoking Status: Unknown if Ever Smoked Cigarette use (# per day): No Chew tobacco use (# tins/day): No Smoking Education Provided: No Frequency of alcohol use: None Drug Abuse: None Family History: Reviewed & Not Pertinent - Past Medical History Cardiac Medical History: Denies: Hx Coronary Artery Disease, Hx Heart Attack, Hx Hypertension Pulmonary Medical History: Denies: Hx Asthma, Hx Bronchitis, Hx COPD, Hx Pneumonia Neurological Medical History: Reports: Hx Seizures - CONVULSION DISORDER, PENS. Denies: Hx Cerebrovascular Accident Renal/ Medical History: Denies: Hx Peritoneal Dialysis Musculoskeltal Medical History: Denies Hx Arthritis Psychiatric Medical History: Reports: Hx Anxiety, Hx Depression, Hx Post Traumatic Stress Disorder Past Surgical History: Reports: Other - rhizotomy - Immunizations Hx Diphtheria, Pertussis, Tetanus Vaccination: Yes Review of Systems - Review of Systems Constitutional: denies: Fever EENT: denies: Eye discharge, Nose discharge Cardiovascular: denies: Chest pain, Palpitations Respiratory: denies: Short of breath Gastrointestinal: denies: Vomiting Genitourinary: denies: Dysuria Musculoskeletal: denies: Leg swelling Skin: Other - no hives. denies: Rash Neurological/Psychological: Other - no slurred speech -: Yes All other systems reviewed and negative Physical Exam - Vital signs Vitals: Temp 98.6 F 10/17/17 13:33 Notes: Reviewed vital signs and nursing note as charted by RN. CONSTITUTIONAL: Alert and oriented and responds appropriately to questions. Well -appearing; well-nourished HEAD: Normocephalic; atraumatic EYES: PERRL; sclerae non-icteric ENT: Normal nose; no rhinorrhea; moist mucous membranes; pharynx without lesions noted NECK: Supple without meningismus; non-tender; no cervical lymphadenopathy, no masses CARD: Regular rate and rhythm; no murmurs; symmetric distal pulses RESP: Normal chest excursion without splinting or tachypnea; breath sounds clear and equal bilaterally; no wheezes, no rhonchi, no rales ABD/GI: Normal bowel sounds; non-distended; soft, non-tender, no rebound, no guarding; no palpable organomegaly or masses BACK: The back appears normal and is non-tender to palpation, there is no CVA tenderness EXT: Normal ROM in all joints; non-tender to palpation; no cyanosis, no effusions, no edema SKIN: Normal color for age and race; warm; dry; good turgor; capillary refill < 2 seconds; no acute lesions noted NEURO: CN II through XII are intact. No aphasia either receptively and expressively. I detect possibly a minimal right angle facial droop. Patient has 5 out of 5 bilateral upper and lower extremity strength with sensation intact to light touch PSYCH: The patient's mood and manner are appropriate. Grooming and personal hygiene are appropriate. Course - Re-evaluation Re-evalutation: 10/17/17 13:40 Given the above history and physical examination, with the weakness only presenting status post seizure episode witnessed by a friend at [employer], I do not believe the patient is a TPA candidate. We will obtain a CT scan of the head, basic labs, EKG, and reassess. EKG shows heart of 74, normal sinus rhythm, normal axis, no obvious ST elevation or depression. 10/17/17 14:26 CT scan of the head as recorded. Patient's neurological exam continues to improve. I do not detect any facial droop at this time. 10/17/17 16:10 Patient still has no focal neurological deficits. She does state a mild frontal headache. No facial drooping or weakness or numbness noted. Patient states that "I always have normal EEGs". I expressed my concern and that I do not want the patient to drive a car, swim, take a bath, or engage in any other activities that may cause serious harm if she should have another repeat episode until she has been reevaluated by her neurologist. - Vital Signs Vital signs: Temp Pulse Resp BP Pulse Ox 98.6 F 14 130/77 H 98 10/17/17 13:33 10/17/17 14:24 10/17/17 16:01 10/17/17 16:01 - Laboratory Result Diagrams: 10/17/17 13:49 10/17/17 13:49 Laboratory results interpreted by me: 10/17/17 10/17/17 13:49 13:49 Hgb 11.8 L Hct 35.2 L MCH 26.8 L Glucose 72 L Discharge - Discharge Clinical Impression: Seizure-like activity, Weakness Condition: Good Disposition: HOME, SELF-CARE Additional Instructions: Come back immediately for any repeat seizure-like activity, weakness or numbness , fevers or vomiting, or any other acute problems. Please make sure that she follow-up with your neurologist. Please do not drive a car, take a bath, go swimming, or engage in any other activities that may cause serious harm or even if you should have a repeat unwitnessed episode until you have been seen and reevaluated by a neurologist. Referrals: BG LOPEZ MD [Primary Care Provider] - Follow up as needed
[2017-10-17 14:10] LABS: ABSOLUTE LYMPHOCYTES (AUTO) 1.8 10^3/uL (0.5-4.7); ABSOLUTE MONOCYTES (AUTO) 0.4 10^3/uL (0.1-1.4); ABSOLUTE NEUT (AUTO) 2.9 10^3/uL (1.7-8.2); BASOPHILS % (AUTO) 0.6 % (0-2); EOSINOPHILS % (AUTO) 0.7 % (0-6); HEMATOCRIT 35.2 % (36.0-47.0); HEMOGLOBIN 11.8 g/dL (12.0-15.5); MEAN CORPUSCULAR HEMOGLOBIN 26.8 pg (27.0-33.4); MEAN CORPUSCULAR HGB CONC 33.5 g/dL (32.0-36.0); MEAN CORPUSCULAR VOLUME 80 fl (80-97); MONOCYTES % (AUTO) 8.1 % (3-13); PLATELET COUNT 232 10^3/uL (150-450); RED BLOOD COUNT 4.41 10^6/uL (3.72-5.28); RED CELL DISTRIBUTION WIDTH 13.1 % (11.5-14.0); SEGMENTED NEUTROPHILS % (AUTO) 56.6 % (42-78); TOTAL CELLS COUNTED % (AUTO) 100 %; WHITE BLOOD COUNT 5.2 10^3/uL (4.0-10.5)
--- NOTE | 2017-10-17 14:19 | RADIOLOGY REPORT (SQ) ---
EXAM DESCRIPTION: CT HEAD WITHOUT COMPLETED DATE/TIME: 10/17/2017 2:06 pm REASON FOR STUDY: 15; seizure with right sided weakness COMPARISON: 2017 TECHNIQUE: Axial images acquired through the brain without intravenous contrast. Images reviewed wi th bone, brain and subdural windows. Additional sagittal and coronal reconstructions were generated. Images stored on PACS. All CT scanners at this facility use dose modulation, iterative reconstruction, and/or weight based d osing when appropriate to reduce radiation dose to as low as reasonably achievable (ALARA). [facility]: Dose Right [facility]: CareDose [facility]: Dose Right [facility]: Teradose 4D [facility]: Smart [employer] RADIATION DOSE: CT Rad equipment meets quality standard of care and radiation dose reduction techniq ues were employed. CTDIvol: 53.2 mGy. DLP: 1017 mGy-cm. mGy. LIMITATIONS: None. FINDINGS: VENTRICLES: Normal size and contour. CEREBRUM: No masses. No hemorrhage. No midline shift. No evidence for acute infarction. Normal gra y/white matter differentiation. No areas of low density in the white matter. CEREBELLUM: No masses. No hemorrhage. No alteration of density. No evidence for acute infarction. EXTRAAXIAL SPACES: No fluid collections. No masses. ORBITS AND GLOBE: No intra- or extraconal masses. Normal contour of globe without masses. CALVARIUM: No fracture. PARANASAL SINUSES: No fluid or mucosal thickening. SOFT TISSUES: No mass or hematoma. OTHER: No other significant finding. IMPRESSION: NORMAL BRAIN CT WITHOUT CONTRAST. EVIDENCE OF ACUTE STROKE: NO. COMMENT: Quality ID # [id number]: Final reports with documentation of one or more dose reduction techniques (e.g., Automated exposure control, adjustment of the mA and/or kV according to patient size, use of iterative reconstruction technique) TECHNICAL DOCUMENTATION: JOB ID: [id number] [employer]- All Rights Reserved Reading location - IP/workstation name: [email or web address]
[2017-10-17 14:35] LABS: ANION GAP 11 (5-19); BLOOD UREA NITROGEN 7 mg/dL (7-20); CALCIUM 9.4 mg/dL (8.4-10.2); CARBON DIOXIDE 25 mmol/L (22-30); CHLORIDE 107 mmol/L (98-107); GLUCOSE 72 mg/dL (75-110); POTASSIUM 4.3 mmol/L (3.6-5.0); SODIUM 142.5 mmol/L (137-145)
[2017-10-17] MEDS ORDERED: ACETAMINOPHEN 325 MG TABLET PO ONE (16:09)
[2017-10-17 16:10] VITALS: BP 130/77
--- NOTE | 2017-10-17 21:20 | EKG REPORT ---
SEVERITY:- NORMAL ECG - SINUS RHYTHM : Confirmed by: Nicky Garcia 17-Oct-2017 21:19:49
== END 2017-10-17 16:21 | disposition home or self-care (01) ==
LOC: ER 13:19
DX: R56.9 Unspecified convulsions (principal); M62.81 Muscle weakness (generalized); R29.810 Facial weakness
CPT/HCPCS: 93005; 99284; 36415; 85025; 80048; 84484; 70450; 93010; A9270

== ENCOUNTER 2018-02-03 18:44 | Emergency (ER) | payer MEDICARE, MEDICAID ==
--- NOTE | 2018-02-03 21:20 | ER Document Report ---
ED General - General Chief Complaint: Nausea/Vomiting Stated Complaint: DIZZY, VOMITING, NAUSEA Time Seen by Provider: 02/03/18 21:19 TRAVEL OUTSIDE OF THE [place] IN LAST 30 DAYS: No COUNTRY TRAVELED TO/FROM: [place] [facility] Patient complains to provider of: lightheadedness Onset: Other - this 37 yo female presents for evaluation of a sensation of fatigue as well as lightheadedness and weakness after having taken multiple doses of her sertraline as well as buspirone and clonidine prior to going to sleep. She notes that she woke up feeling somewhat lightheaded, was unsteady on her feet and a little nauseous with the sensation that she had a racing heart. She denies any chest pain, shortness of breath, abdominal pain, diarrhea constipation dysuria fevers or chills no preceding illnesses. Has not been sick at all recently. - Related Data Allergies/Adverse Reactions: Iodinated Contrast- Oral and IV Dye Allergy (Severe, Verified 10/17/17 13:37) Hives Iodine and Iodide Containing Produc Allergy (Verified 10/17/17 13:37) Past Medical History - General Information source: Patient - Social History Smoking Status: Former Smoker Family History: Reviewed & Not Pertinent - Past Medical History Cardiac Medical History: Denies: Hx Coronary Artery Disease, Hx Heart Attack, Hx Hypertension Pulmonary Medical History: Denies: Hx Asthma, Hx Bronchitis, Hx COPD, Hx Pneumonia Neurological Medical History: Reports: Hx Seizures - CONVULSION DISORDER, PENS. Denies: Hx Cerebrovascular Accident Renal/ Medical History: Denies: Hx Peritoneal Dialysis Musculoskeletal Medical History: Denies Hx Arthritis Psychiatric Medical History: Reports: Hx Anxiety, Hx Depression, Hx Post Traumatic Stress Disorder Past Surgical History: Reports: Other - rhizotomy - Immunizations Hx Diphtheria, Pertussis, Tetanus Vaccination: Yes Review of Systems - Review of Systems -: Yes All other systems reviewed and negative Physical Exam - Vital signs Vitals: Temp Pulse Resp BP Pulse Ox 98.6 F 81 14 128/67 H 97 02/03/18 18:56 02/03/18 18:56 02/03/18 18:56 02/03/18 18:56 02/03/18 18:56 - General General appearance: Appears well In distress: None - HEENT Head: Normocephalic Eyes: Normal Conjunctiva: Normal Cornea: Normal Extraocular movements intact: Yes Eyelashes: Normal Pupils: PERRL - Respiratory Respiratory status: No respiratory distress Chest status: Nontender Breath sounds: Normal Chest palpation: Normal - Cardiovascular Rhythm: Regular Heart sounds: Normal auscultation Murmur: No - Abdominal Inspection: Normal Distension: No distension Tenderness: Nontender - Back Back: Normal - Extremities General upper extremity: Normal inspection, Nontender, Normal ROM, Normal strength General lower extremity: Normal inspection, Nontender, Normal ROM, Normal strength - Neurological Neuro grossly intact: Yes Cognition: Normal Orientation: AAOx4 [place] Coma Scale Eye Opening: Spontaneous [place] Coma Scale Verbal: Oriented Abdirashid Coma Scale Motor: Obeys Commands Abdirashid Coma Scale Total: 15 Speech: Normal Cranial nerves: Normal Motor strength normal: LUE, RUE, LLE, RLE - Psychological Associated symptoms: Normal affect Course - Re-evaluation Re-evalutation: 02/03/18 23:56 37-year-old female who took multiple medicationsd and had likely an adverse reaction. She is neurologically intact well-appearing overall. We will plan to obtain an EKG and will plan to monitor in emergency department. We will reassess as necessary. Patient was ambulatory without assistance after a brief period of observation in the emergency department, during that time she did not have any episodes on monitor. Her EKG was reassuring. Will discharge in the care of her sister she noted some low level nausea as such we will plan for her to undergo treatment with Zofran. Do not believe that this represents a more serious underlying cause of her symptoms including but not limited to CVA, vertigo, intentional overdose. - Vital Signs Vital signs: Temp Pulse Resp BP Pulse Ox 98.6 F 81 16 118/76 99 02/03/18 18:56 02/03/18 18:56 02/03/18 23:01 02/03/18 23:01 02/03/18 23:01 Discharge - Discharge Clinical Impression: Adverse effects of medication Qualifiers: Encounter type: initial encounter Qualified Code(s): T50.905A - Adverse effect of unspecified drugs, medicaments and biological substances, initial encounter Condition: Good Disposition: HOME, SELF-CARE Additional Instructions: Your seen today in the emergency department for your adverse reaction to your medications. You should not take all of your medications at the same time, you should take your medications as prescribed to you. It is important that you follow the directions when taking these medications. Pause your BuSpar, call your doctor tomorrow to decide how you would like to replace this medication. You were monitored in the emergency department without any issues, your vital signs remained stable, your EKG was reassuring. No other obvious problems were identified. I believe this was related to your medication use. Referrals: BG LOPEZ MD [Primary Care Provider] - Follow up tomorrow
--- NOTE | 2018-02-03 22:34 | EKG REPORT ---
SEVERITY:- NORMAL ECG - SINUS RHYTHM : Confirmed by: Dia Michel MD 03-Feb-2018 22:34:13
[2018-02-03] MEDS ORDERED: ONDANSETRON ODT 4 MG TAB (6 TAB/ER DISP) PO PRN (23:48)
[2018-02-04 00:11] VITALS: BP 109/72
== END 2018-02-03 23:51 | disposition home or self-care (01) ==
LOC: ER 18:44
DX: R42 Dizziness and giddiness (principal); R11.2 Nausea with vomiting, unspecified; R53.83 Other fatigue; R53.1 Weakness; R26.81 Unsteadiness on feet; T50.905A Adverse effect of unspecified drugs, medicaments and biological substances, initial encounter; Z87.891 Personal history of nicotine dependence; Z98.890 Other specified postprocedural states
CPT/HCPCS: 93005; 99284; 93010; A9270

== ENCOUNTER 2018-12-31 15:36 | Outpatient (CLI) | payer MEDICARE, MEDICAID ==
--- NOTE | 2018-12-31 16:25 | Non Stress Test Report ---
Non Stress Test Datetime Report Generated by CPN: 12/31/2018 16:25 DEMOGRAPHIC EGA NST: 36.0 INDICATION Indication for Study: Other Indication for Study (NST) Other: NST from Office MONITORING Monitor Explained: Monitor Explained; Test Explained; Patient Verbalized Understanding Time on Monitor: 12/31/2018 15:45 Time off Monitor: 12/31/2018 16:23 NST Duration: 38 NST INTERVENTIONS NST Interventions: None Physician Notified NST: Dr. Galindo BABY A: [id number] BABY A Movement : Present Contraction Frequency : 0 FHR Baseline : 140 Accelerations : 15X15 Decelerations : None Variability : Moderate 6-25bpm NST Review: Meets Criteria for Reactive NST NST Review and Verified By : B Baidy RN NST Results: Reactive NST REPORT Report Trigger: Send Report
== END 2018-12-31 16:30 | disposition home or self-care (01) ==
LOC: LC 15:36
PROVIDERS: ATTEND Obstetrics & Gynecology
PROC: 4A1HXCZ Monitoring of Products of Conception, Cardiac Rate, External Approach (ICD-10-PCS; principal; 2018-12-31)
DX: O09.523 Supervision of elderly multigravida, third trimester (principal); Z3A.36 36 weeks gestation of pregnancy
CPT/HCPCS: 59025

== ENCOUNTER 2019-01-03 11:25 | Outpatient (CLI) | payer MEDICARE, MEDICAID ==
--- NOTE | 2019-01-03 12:15 | Non Stress Test Report ---
Non Stress Test Datetime Report Generated by CPN: 01/03/2019 12:15 DEMOGRAPHIC EGA NST: 36.3 INDICATION Indication for Study: Ordered by Provider Indication for Study (NST) Other: repeat NST from the office VITAL SIGNS Temperature - NST: 98.5 (Annotations: Data stored by CPN on behalf of user) Pulse - NST: 82 RESP - NST: 16 NBPSYS NST: 115 NBPDIA NST: 63 MONITORING Monitor Explained: Monitor Explained; Test Explained; Patient Verbalized Understanding Time on Monitor: 01/03/2019 11:38 Time off Monitor: 01/03/2019 12:14 NST Duration: 36 NST INTERVENTIONS NST Interventions: None Physician Notified NST: J Alvarez CNM (Annotations: Data stored by CPN on behalf of user) BABY A: [id number] BABY A Movement : Present Contraction Frequency : none FHR Baseline : 135 Accelerations : 15X15 Decelerations : None Variability : Moderate 6-25bpm NST Review: Meets Criteria for Reactive NST NST Review and Verified By : B Beatrizdy RN/D Bellavaveroniquee RN NST Results: Reactive NST REPORT Report Trigger: Send Report
== END 2019-01-03 12:21 | disposition home or self-care (01) ==
LOC: LC 11:25
PROVIDERS: ATTEND Obstetrics & Gynecology
PROC: 4A1HXCZ Monitoring of Products of Conception, Cardiac Rate, External Approach (ICD-10-PCS; principal; 2019-01-03)
DX: O24.410 Gestational diabetes mellitus in pregnancy, diet controlled (principal); O09.523 Supervision of elderly multigravida, third trimester; Z3A.36 36 weeks gestation of pregnancy
CPT/HCPCS: 59025

== ENCOUNTER 2019-01-05 08:29 | Inpatient (IN) | payer MEDICARE, MEDICAID ==
[2019-01-05] MEDS ORDERED: PENICILLIN G-K 5 MILLION UNIT VIAL ONE ×2 (09:23→13:18)
[2019-01-05] MEDS ORDERED: OXYTOCIN 10 UNIT/ML VIAL ONE (09:32)
[2019-01-05] MEDS ORDERED: OXYTOCIN/NORMAL SALINE 20 UNIT/1,000 ML RTUINJ ONE (09:33)
[2019-01-05] MEDS ORDERED: MISOPROSTOL 0.2 MG TABLET ONE (09:33)
[2019-01-05] MEDS ORDERED: RINGERS SOLUTION,LACTATED 1,000 ML IV PRN (09:33)
[2019-01-05] MEDS ORDERED: LIDOCAINE 1% INJ-PF (10 MG/ML) 30 ML SDV ONE (09:33)
[2019-01-05] MEDS ORDERED: PENICILLIN G POTASSIUM 5,000,000 UNIT in DEXTROSE 5%-WATER 100 ML IV ONE (09:34)
[2019-01-05 09:37] LABS: APPEARANCE,URINE CLEAR; BILIRUBIN,URINE NEGATIVE (NEGATIVE); COLOR,URINE STRAW; GLUCOSE, URINE NEGATIVE (NEGATIVE); KETONES,URINE NEGATIVE (NEGATIVE); LEUKOCYTE ESTERASE,URINE NEGATIVE (NEGATIVE); NITRITE,URINE NEGATIVE (NEGATIVE); PROTEIN,URINE NEGATIVE (NEGATIVE); URINE SPECIFIC GRAVITY 1.004; UROBILINOGEN,URINE NEGATIVE mg/dL (<2.0)
[2019-01-05 09:44] LABS: URINE AMPHETAMINES SCREEN NEGATIVE; URINE BARBITURATES SCREEN NEGATIVE; URINE BENZODIAZEPINES SCREEN NEGATIVE; URINE COCAINE SCREEN NEGATIVE; URINE MARIJUANA (THC) SCREEN NEGATIVE; URINE METHADONE SCREEN NEGATIVE; URINE PHENCYCLIDINE SCREEN NEGATIVE
[2019-01-05] MEDS ORDERED: BETAMET ACET/BETAMET NA INJ 6 MG/1 ML ONE (09:58)
[2019-01-05 10:03] LABS: ADD MANUAL MICROSCOPIC YES
[2019-01-05 10:25] LABS: ABSOLUTE LYMPHOCYTES (AUTO) 1.3 10^3/uL (0.5-4.7); ABSOLUTE MONOCYTES (AUTO) 0.3 10^3/uL (0.1-1.4); BASOPHILS % (AUTO) 0.5 % (0-2); EOSINOPHILS % (AUTO) 0.4 % (0-6); HEMATOCRIT 36.7 % (36.0-47.0); HEMOGLOBIN 11.8 g/dL (12.0-15.5); LYMPHOCYTES % (AUTO) 23.3 % (13-45); MEAN CORPUSCULAR HEMOGLOBIN 25.9 pg (27.0-33.4); MEAN CORPUSCULAR HGB CONC 32.1 g/dL (32.0-36.0); MEAN CORPUSCULAR VOLUME 81 fl (80-97); MONOCYTES % (AUTO) 4.9 % (3-13); PLATELET COUNT 139 10^3/uL (150-450); RED BLOOD COUNT 4.55 10^6/uL (3.72-5.28); RED CELL DISTRIBUTION WIDTH 18.5 % (11.5-14.0); SEGMENTED NEUTROPHILS % (AUTO) 70.9 % (42-78); TOTAL CELLS COUNTED % (AUTO) 100 %; WHITE BLOOD COUNT 5.7 10^3/uL (4.0-10.5)
[2019-01-05 10:36] LABS: WBC,URINE 0-1 /HPF
[2019-01-05 10:37] LABS: BACTERIA,URINE TRACE /HPF
--- NOTE | 2019-01-05 11:16 | Admission Physical ---
Datetime Report Generated by CPN: 01/05/2019 11:16 CURRENT ADMISSION Chief Complaint: Suspected Ruptured Membranes Indication for Induction: Not Applicable Admit Impression : , Intrauterine ; Ruptured Membranes Admit Impression- Other: SROM at 0715 this am Admit Plan: Admit to Unit ALLERGIES Medication Allergies: Yes Medication Allergies: Iodinated Contrast Media/SV/Hives (01/05/2019); Iodine and Iodide Containing Produc (01/05/2019) Latex: No Latex Allergies OBSTETRICAL HISTORY EDC: 01/28/2019 00:00 : 4 Para: 3 Term: 3 : 0 SAB: 0 IAB: 0 Ectopic: 0 Livin Cesareans: 0 VBACs: 0 Multiple Births: 0 Gestational Diabetes: Yes Rh Sensitization: No Incompetent Cervix: No FAYE: No Infertility: No ART Treatment: No Uterine Anomaly: No IUGR: No Hx Previous C/S: No Macrosomia: No Hx Loss/Stillborn: No PIH: No Hx : No Placenta Previa/Abruption: No Depression/PP Depression: Yes PTL/PROM: No Post Hemorrhage: No Current Procedures: Ultrasound; NST Obstetrical History Comments: G1-1995; full term, vaginal 5lbs 13 oz male G2-2001; full term, vaginal 7lbs 1 oz male G3-2011; full term, vaginal 7lbs, male G4- current - AMA, GDM SEE RECORDS Alcohol: No Marijuana : No Cocaine: No Other Illicit Drugs: No Cigarettes: Never Smoker. [id number] MEDICAL HISTORY Diabetes: Yes Diabetes Type: Gestational Diabetes Blood Transfusion: No Pulmonary Disease (Asthma, TB): No Breast Disease: No Hypertension: No Piece Dyeing Machine Tender Surgery: No Heart Disease: No Hosp/Surgery: Yes Autoimmune Disorder: No Anesthetic Complications: No Kidney Disease: No Abnormal Pap Smear: No Neuro/Epilepsy: Yes Psychiatric Disorders: Yes Other Medical Diseases: No Hepatitis/Liver Disease: No Significant Family History: No Varicosities/Phlebitis: No Trauma/Violence : No Thyroid Dysfunction: No Medical History Comments: PNES pt states seizure in october- no meds, depression, GDM- glyburide, hammer toe surgery, cryotherapy, depression- was on zoloft, PTSD INFECTIOUS HISTORY Gonorrhea: No Genital Herpes: No Chlamydia: No Tuberculosis: No Syphilis: No Hepatitis: No HIV/AIDS Exposure: No Rash or Viral Illness: No HPV: No PHYSICAL EXAM General: Normal HEENT: Normal Neurologic: Normal Thyroid: Deferred Heart: Normal Lungs: Normal Breast: Deferred Back: Deferred Abdomen: Normal Genitourinary Exam: Normal Extremities: Normal DTRs: Normal Pelvic Type: Adequate Physical Exam Comments: Proven for 7lbs 1 oz Vital Signs: Reviewed; Within Normal Limits Details Vital Signs: 1 reading elevated MEMBRANES Membranes: Ruptured Amniotic Fluid Color: Clear FETUS A EGA: 36.5 Monitoring: External US FHR- Baseline: 140 Variability: Moderate 6-25bpm Accelerations: 15X15 FHR Category: Category I Presentation: Vertex Admit Comment: Hx PTSD, PNES, depression-on meds _ counseling GDMA2-on Glyburide SROM at 0715 today GBS culture pending records pending PLANS FOR LABOR AND DELIVERY Labor and Delivery: None Pain Management: Epidural Feeding Preference: Breast Benefit of Breast Feed Discussed: Yes Circumcision: N/A INFORMED CONSENT Assignment: Clark Muhammad MD Signature: with User ID: [email or web address] : with User ID: [email or web address] : I personally evaluated and examined the patient in conjunction with the MLP and agree with the assessment, treatment plan and disposition.
[2019-01-05] MEDS: PENICILLIN G POTASSIUM 2,500,000 UNIT in DEXTROSE 5%-WATER 50 ML IV SCH ×2 (13:29→21:16)
[2019-01-05] MEDS ORDERED: NALBUPHINE HCL INJ 10 MG/1 ML AMPULE INJ ONE (14:21)
[2019-01-05] MEDS ORDERED: PROMETHAZINE HCL INJ 25 MG/1 ML VIAL IV ONE (14:21)
[2019-01-05] MEDS ORDERED: PROMETHAZINE HCL INJ 25 MG/1 ML VIAL ONE (14:26)
[2019-01-05] MEDS ORDERED: NALBUPHINE HCL INJ 10 MG/1 ML AMPULE ONE (14:26)
[2019-01-05] MEDS ORDERED: ACETAMINOPHEN WITH CODEINE #3 TABLET PO PRN (16:35)
[2019-01-05] MEDS ORDERED: PSEUDOEPHEDRINE HCL 30 MG TABLET PO PRN (16:35)
[2019-01-05] MEDS ORDERED: PROMETHAZINE HCL 25 MG SUPP.RECT PR PRN (16:35)
[2019-01-05] MEDS ORDERED: ZOLPIDEM TARTRATE 5 MG TABLET PO PRN (16:35)
[2019-01-05] MEDS ORDERED: PROMETHAZINE HCL INJ 25 MG/1 ML VIAL IV PRN (16:35)
[2019-01-05] MEDS ORDERED: OXYTOCIN/NORMAL SALINE 20 UNIT/1,000 ML RTUINJ IV PRN (16:35)
[2019-01-05] MEDS ORDERED: GLYCERIN/WITCH HAZEL LEAF 1 EACH MED..WIPE TP PRN (16:35)
[2019-01-05] MEDS ORDERED: DIPHENHYDRAMINE HCL 25 MG CAPSULE PO PRN (16:35)
[2019-01-05] MEDS ORDERED: BENZOCAINE/MENTHOL AEROSOL SPRAY 56 ML TOP PRN (16:35)
[2019-01-05] MEDS ORDERED: NA PHOS,M-B/NA PHOS,DI-BA (ADULT) 133 ML ENEMA PR PRN (16:35)
[2019-01-05] MEDS ORDERED: DIBUCAINE 1% OINTMENT 56 GM TP PRN (16:35)
[2019-01-05] MEDS ORDERED: MAGNESIUM HYDROXIDE SUSP 30 ML UDCUP PO PRN (16:35)
[2019-01-05] MEDS ORDERED: PROMETHAZINE HCL 25 MG TABLET PO PRN (16:35)
[2019-01-05] MEDS ORDERED: MEASLES,MUMPS&RUBELLA VACC/PF 0.5 ML VIAL SUBCUT PRN (16:35)
[2019-01-05] MEDS ORDERED: DIPH/PERTUSS(ACELL)/TETANUS VAC/PF 0.5 ML SYR (>=10YO) IM PRN (16:35)
[2019-01-05] MEDS ORDERED: ACETAMINOPHEN 650 MG SUPP.RECT PR PRN (16:35)
[2019-01-05] MEDS ORDERED: ACETAMINOPHEN WITH CODEINE #3 TABLET ONE (17:10)
--- NOTE | 2019-01-05 18:19 | Delivery Summary ---
Del Sum A-C Datetime Report Generated by CPN: 01/05/2019 18:19 DELIVERY PERSONNEL DELIVERY PERSONNEL: [id number] Delivery Doctor:: Sammie Swartz CNM Nurse Organisational Psychologist Certified:: Sammie Swartz CNM Labor and Delivery Nurse:: Chioma Banda RNadult parole officer Nurse:: Caryl Alfaro RN Mold Machine Operator:: Debra Vega RN Systems Software Manager/TANK HOUSE SUPERVISOR: Any Kat, ENGINEERING INSPECTION ASSISTANT MATERNAL INFORMATION Delivery Anesthesia: None Medications After Delivery: Pitocin Bolus-Please Comment Meds After Delivery Comment: Pitocin 20 units/1 L NS bolusing per order. Estimated Blood Loss (ml): 200 Delivery QBL: 189 Maternal Complications: Premature Rupture of Membranes Other Maternal Complications: Prematurity Provider Comments: Called to room 2 as patient complete and involuntarily pushing. of live female in vertex OA to ALEX at 1555. Spontaneous respirations and cry. 3-vessel cord. Apgars 8-9. Cord clamped, after 3 min delay, then cut by FOB. Placenta delivered at 1604, [place] presentation, appears intact. Perineum intact. FF at U-3. Patient tolerated procedure well. LABOR SUMMARY EDC: 01/28/2019 00:00 No. Babies in Womb: 1 Attempted: No Labor Anesthesia: IV Sedation LABOR INFORMATION Reason for Induction: Premature Rupture of Membranes Onset of Labor: 01/05/2019 14:30 Complete Dilatation: 01/05/2019 14:39 Oxytocin: Induction Group B Beta Strep: unknown Antibiotics # of Doses: 2 Antibiotics Time of Last Dose: 1330 Name of Antibiotic Given: PCN Steroids Given: Partial Course Reason Steroids Not Administered: Indication MEMBRANES Membranes Rupture Method: Spontaneous Rupture of Membranes: 01/05/2019 07:15 Length of Rupture (hr): 8.70 Amniotic Fluid Color: Clear Amniotic Fluid Amount: Small Amniotic Fluid Odor: Normal STAGES OF LABOR Stage 1 hr: 0 Stage 1 min: 9 Stage 2 hr: 1 Stage 2 min: 18 Stage 3 hr: 0 Stage 3 min: 7 Total Time in Labor hr: 1 Total Time in Labor min: 34 VAGINAL DELIVERY Episiotomy: None Laceration #1: None Laceration Extension #1: N/A Laceration Repair: Not Applicable Sponge Count Correct: N/A Sharps Count Correct: Yes CSECTION DELIVERY Primary Indication: N/A Secondary Indication: N/A CSection Incidence: N/A Labor: N/A Elective: N/A CSection Incision: N/A Uterine Closure: Double-layer closure BABY A INFORMATION Delivery Date/Time: 01/05/2019 15:57 Method of Delivery: Vaginal Born in Route : No : N/A Forceps: N/A Vacuum Extraction: N/A Shoulder Dystocia : No PRESENTATION/POSITION BABY A Presentation: Cephalic Cephalic Presentation: Vertex Vertex Position: Right Occipital Anterior Breech Presentation: N/A PLACENTA INFORMATION BABY A Placenta Delivery Time : 01/05/2019 16:04 Placenta Method of Delivery: Spontaneous Placenta Status: Delivered SCORES BABY A Heart Rate 1 min: >100 bpm Resp Effort 1 min: Good Cry Reflex Irritability 1 min: Cough or Sneeze or Pulls Away Muscle Tone 1 min: Active Motion Color 1 min: Blue/Pale Resuscitation Effort 1 min: Tactile Stimulation SCORE 1 MIN: 8 Heart Rate 5 min: >100 bpm Resp Effort 5 min: Good Cry Reflex Irritability 5 min: Cough or Sneeze or Pulls Away Muscle Tone 5 min: Active Motion Color 5 min: Body [place], Extremities Blue Resuscitation Effort 5 min: Tactile Stimulation SCORE 5 MIN: 9 INFANT INFORMATION BABY A Gestational Age at Delivery: 36.5 Gestational Status: Late - 34- 36.6 Weeks Infant Outcome : Liveborn Condition : Stable Sex: Female IDENTIFICATION BABY A Infant Verification Date/Time: 01/05/2019 16:37 ID Band Number: [id number] Mother's Name Verified: Yes Infant RN Verifying : Chioma Banda, RN; Caryl Alfaro, MATTHEW WEIGHT/LENGTH BABY A Birthweight (gm): 2775 Infant Weight (lb): 6 Infant Weight (oz): 2 Length (in): 19.00 Infant Length (cm): 48.26 CORD INFORMATION BABY A No. Cord Vessels: 3 Nuchal Cord : N/A Cord Blood Taken: Yes-For Eval (Mom's Blood Type - or O+) Suction: None ASSESSMENT BABY A Complications: None Physical Findings at Delivery: Within Normal Limits Respirations: Appears Normal Skin to Skin: Yes Skin to Skin Time (min): 60 Metal Furniture Polisher/ALS Called : No Care By: Timo Vega, RN Transferred To: Remains with Mother BABY B INFORMATION : N/A SIGNATURES Assignment: Clark Muhammad MD Signature: with User ID: [email or web address] : with User ID: [email or web address] : I personally evaluated and examined the patient in conjunction with the MLP and agree with the assessment, treatment plan and disposition.
[2019-01-05] MEDS: DOCUSATE SODIUM 100 MG CAPSULE PO SCH (21:15)
[2019-01-05] MEDS: FERROUS SULFATE 325 MG TABLET PO SCH (21:15)
[2019-01-05] MEDS: IBUPROFEN 800 MG TABLET PO SCH (21:40)
[2019-01-05] MEDS: FAMOTIDINE 20 MG TABLET PO SCH (21:40)
[2019-01-06] MEDS: ACETAMINOPHEN WITH CODEINE #3 TABLET PO PRN ×2 (00:44→22:30)
[2019-01-06] MEDS: IBUPROFEN 800 MG TABLET PO SCH ×3 (05:57→21:23)
[2019-01-06 09:21] LABS: HEMATOCRIT 33.2 % (36.0-47.0); HEMOGLOBIN 10.6 g/dL (12.0-15.5); MEAN CORPUSCULAR HEMOGLOBIN 25.8 pg (27.0-33.4); MEAN CORPUSCULAR HGB CONC 31.9 g/dL (32.0-36.0); MEAN CORPUSCULAR VOLUME 81 fl (80-97); PLATELET COUNT 171 10^3/uL (150-450); RED CELL DISTRIBUTION WIDTH 18.8 % (11.5-14.0)
[2019-01-06 09:28] LABS: WHITE BLOOD COUNT 12.9 10^3/uL (4.0-10.5)
[2019-01-06] MEDS: FAMOTIDINE 20 MG TABLET PO SCH ×2 (09:56→21:23)
[2019-01-06] MEDS: DOCUSATE SODIUM 100 MG CAPSULE PO SCH ×2 (09:56→17:11)
[2019-01-06] MEDS: SENNOSIDES/DOCUSATE 8.6-50 MG 1 EACH TABLET PO SCH (09:56)
[2019-01-06] MEDS: FERROUS SULFATE 325 MG TABLET PO SCH ×2 (09:56→17:11)
--- NOTE | 2019-01-06 13:57 | PDOC PROGRESS REPORT ---
Subjective-OB Progress Note for:: 01/06/19 Subjective: eports bleeding slowing, pain controlled with current meds, denies needs Physical Exam (OB) Vital Signs: Temp Pulse Resp BP Pulse Ox 97.8 F 85 16 124/66 100 01/06/19 07:30 01/06/19 07:30 01/06/19 07:30 01/06/19 07:30 01/06/19 07:30 Intake & Output 01/05/19 01/06/19 01/07/19 06:59 06:59 06:59 Intake Total 550 Balance 550 Weight 97 kg - Abdomen Description: Soft, Round Hernia Present: No Fundal Description: Firm, Midline Fundal Height: u/u - u/2 - Abdominal Distension: No distension Tenderness: Nontender - Extremities Lower extremities: Clare's sign - neg Calf: Normal, Nontender Objective-Diagnostic Laboratory: 01/06/19 08:19 01/06/19 08:19 WBC 12.9 H D RBC 4.10 Hgb 10.6 L Hct 33.2 L MCV 81 MCH 25.8 L MCHC 31.9 L RDW 18.8 H Plt Count 171 Assessment and Plan(PN) - Assessment and Plan (1) Normal vaginal delivery Is this a current diagnosis for this admission?: Yes - Time Spent with Patient Time with patient: Less than 15 minutes Medications reviewed and adjusted accordingly: Yes - Disposition Anticipated Discharge: Home Within: within 24 hours
[2019-01-07] MEDS: IBUPROFEN 800 MG TABLET PO SCH ×2 (05:43→15:13)
[2019-01-07 08:36] VITALS: BP 119/64
[2019-01-07] MEDS: FERROUS SULFATE 325 MG TABLET PO SCH (09:36)
[2019-01-07] MEDS: DOCUSATE SODIUM 100 MG CAPSULE PO SCH (09:36)
[2019-01-07] MEDS: SENNOSIDES/DOCUSATE 8.6-50 MG 1 EACH TABLET PO SCH (09:36)
[2019-01-07] MEDS: FAMOTIDINE 20 MG TABLET PO SCH (09:37)
[2019-01-07] MEDS ORDERED: GLYCERIN (ADULT) SUPP.RECT PR PRN (12:22)
--- NOTE | 2019-01-07 12:24 | PDOC DISCHARGE SUMMARY ---
Final Diagnosis Discharge Date: 01/07/19 - Final Diagnosis (1) Normal vaginal delivery Is this a current diagnosis for this admission?: Yes Discharge Data - Discharge Medication Prescriptions: Ibuprofen [Motrin 800 mg Tablet] 800 mg PO Q8HP PRN #60 tablet PRN Reason: Home Medications: Vit,Calc76/Iron/Folic [Prenatabs Rx Tablet] 1 tab PO DAILY 12/31/18 Ibuprofen [Motrin 800 mg Tablet] 800 mg PO Q8HP PRN #60 tablet 01/07/19 Procedures: NST Intrapartum Procedure(s): Spontaneous Vaginal Delivery - Diagnosis Test Laboratory: Temp Pulse Resp BP Pulse Ox 97.8 F 81 16 119/64 100 01/07/19 11:24 01/07/19 11:24 01/07/19 11:24 01/07/19 07:54 01/07/19 11:24 01/05/19 01/05/19 01/06/19 08:40 10:05 08:19 RBC 4.55 4.10 Hgb 11.8 L 10.6 L Hct 36.7 33.2 L Urine Opiates Screen NEGATIVE - Discharge information/Instructions Discharge Activity: Balance Activity w/Rest, Pelvic Rest Discharge Diet: Regular Disposition: HOME, SELF-CARE Follow up with: [facility] in: 4, Weeks
== END 2019-01-07 16:10 | disposition home or self-care (01) | DRG 807 ==
LOC: LC 08:29 → LR 09:10 → 2S 20:16
PROVIDERS: ADMIT Obstetrics & Gynecology Gynecology; ATTEND Obstetrics & Gynecology Gynecology
PROC: 10E0XZZ Delivery of Products of Conception, External Approach (ICD-10-PCS; principal; 2019-01-05)
DX: O60.14X0 Preterm labor third trimester with preterm delivery third trimester, not applicable or unspecified (principal); Z37.0 Single live birth; O24.425 Gestational diabetes mellitus in childbirth, controlled by oral hypoglycemic drugs; O42.913 Preterm premature rupture of membranes, unspecified as to length of time between rupture and onset of labor, third trimester; Z3A.36 36 weeks gestation of pregnancy; O99.344 Other mental disorders complicating childbirth; F43.10 Post-traumatic stress disorder, unspecified; F32.9 Major depressive disorder, single episode, unspecified
CPT/HCPCS: 36415; 59025; 80307; 81001; 82962; 84112; 85025; 85027; 86592; 86850; 86900; 86901; 88307; 96372; J0702; J2300; J2540; J2550; J2590; J3490